=== PATIENT | female | born 1985 | race Caucasian/White ===

== ENCOUNTER 2021-07-03 17:50 | Emergency (ER) | payer OTHER ==
[~2021-07-03] VITALS: Ht 190.5 cm; Wt 57.9 kg
[2021-07-03] MEDS ORDERED: PERCOCET 5-3251 EACH PO (20:18)
== END 2021-07-03 20:38 | disposition home or self-care (01) ==
LOC: ED 17:50
DX: S06.0X1A Concussion with loss of consciousness of 30 minutes or less, initial encounter (principal); S52.202A Unspecified fracture of shaft of left ulna, initial encounter for closed fracture; Z88.5 Allergy status to narcotic agent; W22.8XXA Striking against or struck by other objects, initial encounter
CPT/HCPCS: 70450; 71045; 71260; 72125; 73090; 74177; 80053; 81001; 84703; 85025; 99284-25; J2250; J7030; Q9967